=== PATIENT | female | born 1995 | race Caucasian/White ===

== ENCOUNTER → 2020-03-14 | Outpatient (CLI) | payer BC ==
--- NOTE | 2020-03-15 08:59 | USB ---
Reason for exam: clinical finding. History: Family history of breast cancer in maternal aunt at age 30. Indicated problem(s): lump or thickening and pain in the right breast. Physical Findings: Nurse Summary: 2cm nodule in the right breast at 10-11 o'clock (nurse mj). US Breast Limited RT Right limited breast ultrasound including focal area of concern, retroareolar and axilla demonstrates a 1.1 x 1.2 x 0.6cm solid, hypoechoic lesion at 10 o'clock. These results were verbally communicated with the patient and result sheet given to the patient on 03/14/20. ASSESSMENT: Suspicious, BI-RAD 4 RECOMMENDATION: Ultrasound core biopsy of the right breast. Called Dr. Lacey's office with mammographic findings and has scheduled an appointment for the patient for 04/05/20 at 12:[address] Sesay. Biopsy scheduled for 03/28/20 at 1:00. PRELIMINARY REPORT CALLED AND FAXED TO DR. SESAY ON 03/15/20.
== END | disposition home or self-care (01) ==
LOC: RADMAMWWP 14:02
PROVIDERS: ATTEND Family Medicine
DX: N63.10 Unspecified lump in the right breast, unspecified quadrant (principal)

== ENCOUNTER → 2020-03-28 | Day surgery (SDC) | payer BC ==
[2020-03-28 12:08] VITALS: RESP 16
[2020-03-28 13:29] VITALS: BP 104/61; PULSE 58; TEMP 98.3
--- NOTE | 2020-03-28 14:02 | USB ---
EXAMINATION TYPE: US biopsy breast VAD RT DATE OF EXAM: 03/28/2020 CLINICAL HISTORY: R92.8 ABN ultrasound. Palpable by patient. TECHNIQUE: Ultrasound guided core biopsy of left breast. COMPARISON: Prior ultrasound March 14, 2020 FINDINGS: The procedure of ultrasound guided core biopsy was explained to the patient. Benefits, alternatives, and risks were discussed. An informed consent was then obtained. The patient was placed in supine positioning for imaging and for the procedure. Preprocedure ultrasound redemonstrates oval 1.3 cm hypoechoic lesion 10:00 position right breast just below the dermal layer. The overlying skin was prepped and draped in usual sterile fashion. Lidocaine is used as anesthetic into the skin and subcutaneous tissue up to area of concern in the right breast. Under ultrasound guidance, a 12-gauge vacuum assisted biopsy gun device was used to obtain 2 core samples. Following this, a biopsy clip was left in lesion. Ultrasound shows successful placement of clip on last image saved. The patient tolerated the procedure well without any immediate complication. The patient was kept in the radiology department for short stay after the procedure and then discharged home in stable condition. IMPRESSION: Successful, uncomplicated ultrasound guided core biopsy of area of concern in the right breast, full pathology results to follow. Low index of suspicion noted at time of procedure. Lesion was mobile, fibroadenoma suspected. Pathology Results: Benign RIGHT BREAST, 10:00, ULTRASOUND GUIDED CORE BIOPSY: Benign breast with fibrocystic changes including fibrosis and small cysts. Recommendation Follow up ultrasound of the right breast in 6 months. MOLLY
== END ==
LOC: RADUSWWP 11:58
PROVIDERS: ATTEND Surgery
DX: N60.31 Fibrosclerosis of right breast (principal)
CPT/HCPCS: 88305; 19083; A4648; J2001

== ENCOUNTER → 2020-09-12 | Outpatient (CLI) | payer BC ==
--- NOTE | 2020-09-12 13:38 | USB ---
Reason for exam: follow-up at short interval from prior study. History: Family history of breast cancer in maternal aunt at age 30. Benign US biopsy breast VAD RT of the right breast, March 28, 2020. Physical Findings: Nurse did not find any significant physical abnormalities on exam. US Breast Limited RT Right limited breast ultrasound including focal area of concern, retroareolar and axilla demonstrates a 11 x 5 x 10mm oval, solid, hypoechoic lesion at 10 o'clock BB and previous VAD. Unchanged in size. Clip just adjacent to the mass. Given biopsy results different from fibroadenoma, a precautionary 12 month follow up ultrasound is recommended. If symptomatic, surgical evaluation can be considered. These results were verbally communicated with the patient and result sheet given to the patient on 09/12/20. ASSESSMENT: Probably benign, BI-RAD 3 RECOMMENDATION: Ultrasound of the right breast in 1 year.
== END | disposition home or self-care (01) ==
LOC: RADUSWWP 08:33
PROVIDERS: ATTEND Surgery
DX: R92.8 Other abnormal and inconclusive findings on diagnostic imaging of breast (principal)